=== PATIENT | male | born 1980 | race Caucasian/White ===

== ENCOUNTER 2023-10-08 02:04 | Emergency (ER) | payer BC, MEDICAID, SELFPAY ==
[2023-10-08 02:05] VITALS: BP 158/106; PULSE 128; RESP 18; TEMP 36.6; O2SAT 97; BMI 32.5
--- NOTE | 2023-10-08 02:18 | XRR_ITS ---
PROCEDURE INFORMATION: Exam: XR Chest Exam date and time: 10/08/2023 2:36 AM Age: 43 years old Clinical indication: Chest wall pain; Additional info: Chest pain TECHNIQUE: Imaging protocol: Radiologic exam of the chest. Views: 1 view. COMPARISON: No relevant prior studies available. FINDINGS: Lungs: No consolidation, mass, or pulmonary edema. Pleural spaces: No pneumothorax or pleural effusion. Heart/Mediastinum: Cardiomediastinal silhouette is within normal limits. Bones/joints: No acute osseous abnormality. XR/XR chest 1V portable [id number] IMPRESSION: No acute findings.
--- NOTE | 2023-10-08 02:18 | ECG_ITS ---
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 Measurements Intervals [place] Rate: 124 P: 52 TN: 156 QRS: 27 QRSD: 95 T: 60 QT: 307 QTc: 442 Interpretive Statements SINUS TACHYCARDIA ABNORMAL RHYTHM ECG No previous ECG available for comparison Electronically Signed On 10-08-2023 21:37:25 SHIPPING INSPECTOR by Kvng Johnson M.D. [email or web address]/[id number]
[2023-10-08 02:26] LABS: Basophils # 0.1 10^3/uL (0.0-0.1); Basophils % 0.6 %; Eosinophils # 0.3 10^3/uL (0.0-0.8); Hematocrit 50.8 % (37-53); Lymphocytes % 28.5 %; Mean Corpuscular HGB Conc 32.7 g/dL (30-55); Mean Corpuscular Hemoglobin 28.2 pg (27-33); Mean Corpuscular Volume 86.4 fl (82-101); Mean Platelet Volume 8.2 fL (7.4-10.4); Monocytes # 0.8 10^3/uL (0.2-0.9); Monocytes % 5.7 %; Neutrophils # 8.76 10^3/uL (1.8-7.7); Neutrophils % 62.8 %; Nucleated Red Blood Cells % 0 %; Platelet Count 387 10^3/cmm (157-399); Red Blood Count 5.88 10^6/uL (3.85-5.65); Red Cell Distribution Width 14.1 % (12.1-15.1); White Blood Count 13.94 10^3/uL (3.29-11.43)
[2023-10-08 02:45] LABS: Troponin(5th) Baseline < 6 ng/L (0-15)
[2023-10-08 02:46] LABS: Alanine Aminotransferase 21 U/L (0-41); Albumin Level 4.2 g/dL (3.5-5.2); Alkaline Phosphatase 101 U/L (40-130); Aspartate Amino Transferase 13 U/L (0-40); Blood Urea Nitrogen 14 mg/dL (6-20); Calcium 9.4 mg/dL (8.5-10.5); Carbon Dioxide 21 mmol/L (22-29); Chloride 104 mmol/L (98-107); Globulin 2.6 g/dL (1.3-4.6); Glomerular Filtration Rate 59.7 mL/min (90-130); Glucose 131 mg/dL (65-115); Osmolality Calculated 290 mOsm/kg (285-295); Sodium 139 mmol/L (136-145); Total Bilirubin 0.2 mg/dL (0.15-1.2); Total Protein 6.8 g/dL (6.6-8.7)
[2023-10-08] MEDS: ondansetron 2 mg/ML SDV 2 mL 4 MG IVP (03:17)
[2023-10-08] MEDS: LORazepam 2 mg/mL INJ 10 mL MDV 1 MG IVP (03:18)
--- NOTE | 2023-10-08 03:32 | ED_ITS ---
HPI - Chest Pain 2 General: Chief Complaint: Chest Pain Stated Complaint: chest pain Time Seen by Provider: 10/08/23 03:06 History of Present Illness: Patient presents to the ER in custody by police. Patient is been saying he has been having chest pain off and on for several weeks. Patient does not have any cardiac history/coronary artery disease/stents/history of MIs. Patient also says he is recently by his . Patient also says he has been on anxiety medicine in the past and is very anxious at this moment. Patient's heart rate is 120 beats minute blood pressure 158/106. Patient does not take anything for anxiety. Patient states it is more of a chest pressure does not radiate. Patient denies any shortness of breath nausea vomiting. Patient is mildly diaphoretic and appears very anxious. Review of Systems 2 General: Reports: 10 or more systems reviewed and unremarkable except in HPI and below Physical Exam 2 Const: COMMON NORMALS: no acute distress, average body habitus, patient oriented x3, no limitations, healthy appearing, alert and well nourished HENMT: COMMON NORMALS: normocephalic, atraumatic, hearing grossly normal bilaterally, external ears normal, EAC's normal, Normal external nose present, moist oral mucous membranes and oropharynx normal HEAD & SCALP: normocephalic and atraumatic NOSE: Normal external nose present EXTERNAL EAR: Yes external ears normal EXTERNAL AUDITORY CANAL: EAC's normal Neck/C-Spine: COMMON NORMALS: no JVD Chest: COMMONS NORMALS: normal inspection of the chest; negative for normal palpation of entire chest wall (Tenderness with palpation of the left anterior chest wall.) Resp: COMMON NORMALS: normal respiratory effort, No retractions, No use of accessory muscles and clear to auscultation bilaterally AUSCULTATION: clear to auscultation bilaterally Cardio: COMMON NORMALS: no JVD, regular rhythm, S1 normal heart sound present, S2 normal heart sound present, No gallops present (Cardio), No murmurs present (Cardio) and No rub (Cardio); negative for regular rate (Tachycardic) RATE: abnormal rate (Tachycardic) RHYTHM: regular rhythm HEART SOUNDS: S1 normal heart sound present and S2 normal heart sound present GI: COMMON NORMALS: Normal to inspection, nondistended, normoactive bowel sounds present, Soft to palpation, non-tender, No hepatosplenomegaly present and no masses PALPATION: Yes Soft to palpation and Yes No hepatosplenomegaly present Neuro: COMMON NORMALS: patient oriented x3 SENSORIUM/ORIENTATION: Yes alert Course 2 Vital Signs: Vital signs: Vital Signs Temperature 97.9 F 10/08/23 04:23 Pulse Rate 107 H 10/08/23 04:23 Respiratory Rate 16 10/08/23 04:23 Blood Pressure 136/91 10/08/23 04:23 Pulse Oximetry 95 10/08/23 04:23 Oxygen Delivery Me thod Room Air 10/08/23 02:05 MDM - Chest Pain Medical Decision Making Will perform a chest pain cardiac workup with anticipation medical clearance and discharge back to police custody. Patient be given Ativan 1 mg IV for his anxiety. During his cardiac workup patient began to make suicidal statements. The deputies said they can do suicide watch in the [place]. Patient will be cleared medically and discharged to their custody. Differential Diagnosis Unlikely acute massive pulmonary embolism, acute respiratory failure, acute myocardial infarction, cardiac arrest or sudden cardiac Medical Records I reviewed the patient's medical records. Lab Data I reviewed the patient's lab results. 10/08/23 02:22 10/08/23 02:22 Radiology Impressions Chest X-Ray 10/08/23 02:18 IMPRESSION: No acute findings. Laboratory Results WBC 13.94 10^3/uL (3.29-11.43) H 10/08/23 02:22 RBC 5.88 10^6/uL (3.85-5.65) H 10/08/23 02:22 Hgb 16.60 g/dL (11.27-16.99) 10/08/23 02:22 Hct 50.8 % (37-53) 10/08/23 02:22 MCV 86.4 fl (82-101) 10/08/23 02:22 MCH 28.2 pg (27-33) 10/08/23 02:22 MCHC 32.7 g/dL (30-55) 10/08/23 02:22 RDW 14.1 % (12.1-15.1) 10/08/23 02:22 Plt Count 387 10^3/cmm (157-399) 10/08/23 02:22 MPV 8.2 fL (7.4-10.4) 10/08/23 02:22 Neut % (Auto) 62.8 % 10/08/23 02:22 Lymph % (Auto) 28.5 % 10/08/23 02:22 [place] % (Auto) 5.7 % 10/08/23 02:22 Eos % (Auto) 2.0 % 10/08/23 02:22 Baso % (Auto) 0.6 % 10/08/23 02:22 Neut # (Auto) 8.76 10^3/uL (1.8-7.7) H 10/08/23 02:22 Lymph # (Auto) 4.0 10^3/uL (0.8-4.8) 10/08/23 02:22 [place] # (Auto) 0.8 10^3/uL (0.2-0.9) 10/08/23 02:22 Eos # (Auto) 0.3 10^3/uL (0.0-0.8) 10/08/23 02:22 Baso # (Auto) 0.1 10^3/uL (0.0-0.1) 10/08/23 02:22 Nucleated RBC % (auto) 0 % 10/08/23 02:22 Nucleated RBCs # 0.0 /100WBC 10/08/23 02:22 Sodium 139 mmol/L (136-145) 10/08/23 02:22 Potassium 4.0 mmol/L (3.5-5.1) 10/08/23 02:22 Chloride 104 mmol/L (98-107) 10/08/23 02:22 Carbon Dioxide 21 mmol/L (22-29) L 10/08/23 02:22 Anion Gap 18.0 (5-19) 10/08/23 02:22 BUN 14 mg/dL (6-20) 10/08/23 02:22 Creatinine 1.3 mg/dL (0.7-1.2) H 10/08/23 02:22 GFR Calculation 59.7 mL/min (90-130) L 10/08/23 02:22 Glucose 131 mg/dL (65-115) H 10/08/23 02:22 Calculated Osmolality 290 mOsm/kg (285-295) 10/08/23 02:22 Calcium 9.4 mg/dL (8.5-10.5) 10/08/23 02:22 Total Bilirubin 0.2 mg/dL (0.15-1.2) 10/08/23 02:22 AST 13 U/L (0-40) 10/08/23 02:22 ALT 21 U/L (0-41) 10/08/23 02:22 Alkaline Phosphatase 101 U/L (40-130) 10/08/23 02:22 Troponin T Baseline < 6 ng/L (0-15) 10/08/23 02:22 Troponin T 120 Minute 6.51 ng/L (0-15) 10/08/23 04:07 Delta Troponin T 0.59344 ABS# (0-10) 10/08/23 04:07 Total Protein 6.8 g/dL (6.6-8.7) 10/08/23 02:22 Albumin 4.2 g/dL (3.5-5.2) 10/08/23 02:22 Globulin 2.6 g/dL (1.3-4.6) 10/08/23 02:22 XR interpretation done by ED provider, pending radiology final review EKG Data EKG 1: I personally reviewed and interpreted this EKG as follows: EKG interpretation date: 10/08/23 EKG interpretation time: 02:13 Prior EKG tracings: not available for review Interpretation: EKG showed ventricular rate 124 bpm, OR interval 156, QRS duration 95, QTc 381, sinus tachycardia Discharge Plan Discharge Patient Disposition: Home Clinical Impression: Atypical chest pain, Suicidal ideation, Anxiety Condition: Stable Prescriptions: No Action celecoxib 200 mg capsule 200 mg PO BID PRN (Reason: pain) 30 Days Qty: 60 0RF Discharge Orders: Discharge ED (Routine); Ordered 10/08/23 Ordered By: Zachery Garcia Patient Instructions: Chest Pain - Noncardiac, Anxiety (ED), Suicidal Ideation Activity Restrictions/Additional Instructions: Your workup in ER did not show any acute causes of cardiac chest pain. Is felt to be noncardiac in nature. You are fit for confinement. He will be discharged to police custody and placed in suicidal watch secondary to further comments he made in the ER. Coding Level of Care Code ED Assemblies And Installations Inspector for Feli Dawson
[2023-10-08 03:36] VITALS: BP 136/91; PULSE 107; RESP 16; O2SAT 95
[2023-10-08 04:23] VITALS: BP 136/91; PULSE 107; RESP 16; TEMP 36.6; O2SAT 95
[2023-10-08 04:32] LABS: Troponin 5 2HR 6.51 ng/L (0-15); Troponin 5 2HR Delta 0.51001 ABS# (0-10)
== END 2023-10-08 04:28 | disposition home or self-care (01) ==
PROVIDERS: Emergency Provider Emergency Medicine
DX: R07.89 Other chest pain (principal); R45.851 Suicidal ideations; F41.9 Anxiety disorder, unspecified
CPT/HCPCS: 36415; 71045; 80053; 84484; 85025; 93005; 96374; 96375; 99285; J2060; J2405

== ENCOUNTER 2023-10-09 16:01 | Inpatient (IN) | payer BC, SELFPAY ==
[2023-10-09 16:03] VITALS: BP 142/91; PULSE 95; TEMP 36.8; O2SAT 96; BMI 32.5
--- NOTE | 2023-10-09 16:03 | ECG_ITS ---
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 Measurements Intervals [place] Rate: 80 P: 39 [place]: 149 QRS: 25 QRSD: 103 T: 65 QT: 364 QTc: 421 Interpretive Statements SINUS RHYTHM Compared to ECG 10/08/2023 02:13:30 Sinus tachycardia no longer present Electronically Signed On 10-10-2023 6:50:14 METHODS ENGINEER by Dagoberto Mcintosh M.D. [id number]
--- NOTE | 2023-10-09 16:15 | W.ED.PSYCHS ---
HPI - Psych General: Chief Complaint: Psychiatric Symptoms Stated Complaint: 96 hr hold Time Seen by Provider: 10/09/23 16:02 Source: patient Mode of arrival: ambulatory Limitations: no limitations History of Present Illness: 43-year-old male who was arrested today patient's release now brought in by police as he had stated while he was in detention he was suicidal. He states that he just felt very stressed and anxious while in detention he states that since being out he is no longer suicidal or homicidal would like to go home. Associated symptoms: Reports depression Review of Systems Const: Denies: fever(s), chills, body aches or change in appetite ENMT: Denies: throat pain or dental pain Card: Denies: chest pain Resp: Denies: dyspnea GI: Denies: abdominal pain, nausea, vomiting or diarrhea Musc: Denies: neck pain or back pain Skin/Breast: Denies: rash Neuro: Denies: headache(s) Psych: Reports: depression Physical Exam Const: COMMON NORMALS: no acute distress, patient oriented x3 and healthy appearing HENMT: COMMON NORMALS: normocephalic and atraumatic HEAD & SCALP: normocephalic and atraumatic Neck/C-Spine: COMMON NORMALS: full ROM and supple Chest: COMMONS NORMALS: normal inspection of the chest Resp: COMMON NORMALS: normal respiratory effort Cardio: COMMON NORMALS: regular rate, regular rhythm and No murmurs present (Cardio) RATE: regular rate RHYTHM: regular rhythm Extremity: COMMON NORMALS: normal to inspection and full ROM Neuro: COMMON NORMALS: patient oriented x3, moves all extremities and no focal motor deficits Psych: COMMON NORMALS: mental status grossly normal, Normal thought process present and cooperative THOUGHT PROCESS: Normal thought process present Skin: COMMON NORMALS: no rashes or lesions noted and no wounds GENERAL SKIN EXAM: no rashes or lesions noted Course Vital Signs: Vital signs: Vital Signs Temperature 98.2 F 10/09/23 16:03 Pulse Rate 95 10/09/23 16:03 Blood Pressure 142/91 10/09/23 16:03 Pulse Oximetry 96 10/09/23 16:03 Oxygen Delivery Me thod Room Air 10/09/23 16:03 MDM - Psych Medical Decision Making Patient presents for suicidal ideation he is brought in by police on a bicycle or hold his mother actually called parents stated that he had not made threats to she knows of by text to her. He denies being suicidal currently but with these threats will continue 96-hour hold I spoke to psychiatrist and admit at this time. Medical Records I reviewed the patient's medical records. Lab Data I reviewed the patient's lab results. 10/09/23 16:12 10/09/23 16:12 Laboratory Results WBC 12.42 10^3/uL (3.29-11.43) H 10/09/23 16:12 RBC 6.18 10^6/uL (3.85-5.65) H 10/09/23 16:12 Hgb 17.10 g/dL (11.27-16.99) H 10/09/23 16:12 Hct 53.2 % (37-53) H 10/09/23 16:12 MCV 86.1 fl (82-101) 10/09/23 16:12 MCH 27.7 pg (27-33) 10/09/23 16:12 MCHC 32.1 g/dL (30-55) 10/09/23 16:12 RDW 14.2 % (12.1-15.1) 10/09/23 16:12 Plt Count 368 10^3/cmm (157-399) 10/09/23 16:12 MPV 8.1 fL (7.4-10.4) 10/09/23 16:12 Neut % (Auto) 56.5 % 10/09/23 16:12 Lymph % (Auto) 33.7 % 10/09/23 16:12 [place] % (Auto) 6.7 % 10/09/23 16:12 Eos % (Auto) 2.3 % 10/09/23 16:12 Baso % (Auto) 0.6 % 10/09/23 16:12 Neut # (Auto) 7.03 10^3/uL (1.8-7.7) 10/09/23 16:12 Lymph # (Auto) 4.2 10^3/uL (0.8-4.8) 10/09/23 16:12 [place] # (Auto) 0.8 10^3/uL (0.2-0.9) 10/09/23 16:12 Eos # (Auto) 0.3 10^3/uL (0.0-0.8) 10/09/23 16:12 Baso # (Auto) 0.1 10^3/uL (0.0-0.1) 10/09/23 16:12 Nucleated RBC % (auto) 0 % 10/09/23 16:12 Nucleated RBCs # 0.0 /100WBC 10/09/23 16:12 Sodium 138 mmol/L (136-145) 10/09/23 16:12 Potassium 4.4 mmol/L (3.5-5.1) 10/09/23 16:12 Chloride 103 mmol/L (98-107) 10/09/23 16:12 Carbon Dioxide 24 mmol/L (22-29) 10/09/23 16:12 Anion Gap 15.4 (5-19) 10/09/23 16:12 BUN 14 mg/dL (6-20) 10/09/23 16:12 Creatinine 1.1 mg/dL (0.7-1.2) 10/09/23 16:12 GFR Calculation 72.4 mL/min (90-130) L 10/09/23 16:12 Glucose 109 mg/dL (65-115) 10/09/23 16:12 Calculated Osmolality 287 mOsm/kg (285-295) 10/09/23 16:12 Calcium 9.9 mg/dL (8.5-10.5) 10/09/23 16:12 Total Bilirubin 0.2 mg/dL (0.15-1.2) 10/09/23 16:12 AST 17 U/L (0-40) 10/09/23 16:12 ALT 24 U/L (0-41) 10/09/23 16:12 Alkaline Phosphatase 114 U/L (40-130) 10/09/23 16:12 Total Protein 7.3 g/dL (6.6-8.7) 10/09/23 16:12 Albumin 4.3 g/dL (3.5-5.2) 10/09/23 16:12 Globulin 3.0 g/dL (1.3-4.6) 10/09/23 16:12 Salicylates < 0.3 mg/dL (3-10) L 10/09/23 16:12 Acetaminophen < 5.0 ug/mL (10-30) L 10/09/23 16:12 Ethyl Alcohol < 10 mg/dL (0-10) 10/09/23 16:12 No radiology studies performed this visit Discharge Plan Discharge Patient Disposition: Admitted As Inpatient Admit Provider: Jered Clark Clinical Impression: Suicidal ideation Condition: Stable Coding Level of Care Code ED Chucking Machine Set Up Operator Tool for Feli Dawson
[2023-10-09 16:18] LABS: Basophils # 0.1 10^3/uL (0.0-0.1); Basophils % 0.6 %; Eosinophils # 0.3 10^3/uL (0.0-0.8); Eosinophils % 2.3 %; Hematocrit 53.2 % (37-53); Lymphocytes # 4.2 10^3/uL (0.8-4.8); Lymphocytes % 33.7 %; Mean Corpuscular HGB Conc 32.1 g/dL (30-55); Mean Corpuscular Hemoglobin 27.7 pg (27-33); Mean Corpuscular Volume 86.1 fl (82-101); Mean Platelet Volume 8.1 fL (7.4-10.4); Monocytes # 0.8 10^3/uL (0.2-0.9); Monocytes % 6.7 %; Neutrophils # 7.03 10^3/uL (1.8-7.7); Neutrophils % 56.5 %; Nucleated Red Blood Cells % 0 %; Platelet Count 368 10^3/cmm (157-399); Red Blood Count 6.18 10^6/uL (3.85-5.65); Red Cell Distribution Width 14.2 % (12.1-15.1); White Blood Count 12.42 10^3/uL (3.29-11.43)
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
[2023-10-09 16:39] LABS: Acetaminophen < 5.0 ug/mL (10-30); Alanine Aminotransferase 24 U/L (0-41); Albumin Level 4.3 g/dL (3.5-5.2); Alcohol Level < 10 mg/dL (0-10); Alkaline Phosphatase 114 U/L (40-130); Anion Gap 15.4 (5-19); Aspartate Amino Transferase 17 U/L (0-40); Blood Urea Nitrogen 14 mg/dL (6-20); Calcium 9.9 mg/dL (8.5-10.5); Carbon Dioxide 24 mmol/L (22-29); Chloride 103 mmol/L (98-107); Glomerular Filtration Rate 72.4 mL/min (90-130); Glucose 109 mg/dL (65-115); Osmolality Calculated 287 mOsm/kg (285-295); Potassium 4.4 mmol/L (3.5-5.1); Salicylate < 0.3 mg/dL (3-10); Sodium 138 mmol/L (136-145); Total Bilirubin 0.2 mg/dL (0.15-1.2); Total Protein 7.3 g/dL (6.6-8.7)
[2023-10-09 18:11] VITALS: BP 134/83; PULSE 106; RESP 16; TEMP 36.6; O2SAT 96
--- NOTE | 2023-10-09 19:32 | PC.NURSE ---
PT WAS BROUGHT IN TO ED FOR 96 HOUR HOLD AFTER STATING TO PD WHILE IN CUSTODY THAT HE WAS SUICIDAL. PT ALSO STATED SIMILAR STATEMENTS TO HIS MOTHER. PT STATES TO STAFF THAT HE IS NOT SUICIDAL AND THAT BEING CONFINED IS WHAT MAKES ME SUICIDAL. PT STATES THAT HIM BEING ADMITTED IS BULLSHIT AND THAT HE IS GOING TO [facility] THIS FUCKING PLACE WHEN HE GETS OUT OF HERE.
[2023-10-09 20:15] VITALS: BP 107/57; PULSE 90; RESP 17; TEMP 37.1; O2SAT 95
--- NOTE | 2023-10-09 20:27 | PC.NURSE ---
IN BED RESTING, WITHDRAWN TO ROOM. PT IS EVASIVE WITH ASSESSMENT QUESTIONS AND STATES THIS IS A WASTE OF MY TIME SO HURRY UP. DENIES SI/HI AND AVH AT THIS TIME. RATES ANXIETY 2/10 AND DEPRESSION 0/10. DECLINES ANTI ANXIETY MEDICATIONS AND SLEEP MEDS AT THIS TIME. DENIES PAIN.PT IS NOTED TO HAVE NO EYE CONTACT WITH STAFF, AND STATES HE WISHES TO GO HOME. PT EDUCATED THAT HE IS ON A [address] IS THE ONLY ONE THAT CAN DISCHARGE HIM. PT CONTINUED TO BE UPSET AND NEGATIVE TOWARDS STAFF. ALL QUESTIONS ANSWERED AND SUPPORT WAS VOICED.
[2023-10-10 06:00] VITALS: BP 105/75; PULSE 68; RESP 18; TEMP 36.8; O2SAT 95
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
--- NOTE | 2023-10-10 09:01 | PC.NURSE ---
During morning assessment, patient was withdrawn. Patient answered all questions with simple answers. Patient denied SI, HI, AVH, depression, and anxiety. Patient informed of staff needing UA. Patient voiced understanding.
[2023-10-10 14:00] VITALS: BP 146/82; PULSE 86; RESP 18; TEMP 36.8; O2SAT 99
--- NOTE | 2023-10-10 20:19 | PC.NURSE ---
IN BED AROUSES TO VOICE. PT STATES SOMEONE IS BRINGING MY PHONE UP SO DR. LU CAN LOOK AT MY EMAIL THAT I'M WORKING IN [place] SO I CAN DISCHARGE. PTS FRIEND CAME UP WITH PHONE AND THE EMAIL APPEARS TO BE AN INTERVIEW CONFIRMATION WITH THE RATE OF PAY IF HIRED. MOTHER CALLED UNIT TO GIVE RN INFORMATION. MOTHER WAS INFORMED WE CAN LET HER KNOW HE IS HERE BUT WE CAN NOT DISCUSS PT INFORMATION. PTS MOM SAID THAT IS FINE I'M JUST CALLING TO LET WHOEVER NEEDS TO KNOW MY SON IS TRYING TO GET OUT OF THERE AND MAKE HIS DAD CALL UP THERE TO SAY HE HAS A JOB IN [place] AND HE DOES NOT. HE IS JUST TRYING TO GET OUT. RN AGAIN LET MOTHER KNOW HE IS HERE BUT THAT IS THE ONLY INFORMATION I CAN GIVE HER. PT DOES DENY PAIN. DENIES SI/HI AND AVH AT THIS TIME. RATES ANXIETY 2/10 DUE TO WAITING TO GET OUT OF HERE, THATS ALL I WANT TO DO. RATES DEPRESSION 0/10. PT WAS INFORMED HE NEEDS TO COMPLETE HIS URINALYSIS PRIOR TO LEAVING. PT DID URINATE AND SPECIMEN WAS SENT. ALL QUESTIONS ANSWERED AND SUPPORT WAS VOICED.
[2023-10-10 20:44] VITALS: BP 134/65; PULSE 75; RESP 18; TEMP 36.8; O2SAT 95
[2023-10-10 20:55] LABS: Amphetamines Screen Urine Positive (Negative); Barbiturates Screen Urine Negative (Negative); Benzodiazepines Screen Urine Negative (Negative); Cocaine Screen Urine Negative (Negative); Opiate Screen Urine Negative (Negative); PCP Screen Urine Negative (Negative); THC Screen Urine Negative (Negative)
[2023-10-11 06:00] VITALS: BP 147/86; PULSE 77; RESP 16; TEMP 36.9; O2SAT 98
[2023-10-11 14:00] VITALS: BP 133/74; PULSE 74; RESP 17; TEMP 36.4; O2SAT 96
--- NOTE | 2023-10-11 14:01 | P.NPUPN_ITS ---
Subjective NPU 2 Subjective: Patient presented today continuing to report that he is fine. He continued to report the same reasons that he will be safe as before including not having any thoughts to hurt or kill himself and that he would never do that to his children. He continues to push for discharge with reports of still having a plan to get out of town to do his job even though he still has no proof that he has been accepted for new employment in [place]. He continued to deny any ill intent towards his ex and no plans to return to that home where he used to live in cause any more problems or get arrested. He reports that being arrested was the reason why he endorsed suicidal ideation. Mental Status Exam 2 MSE Comments: This is an obese white male in hospital scrubs with adequate grooming and eye contact. No abnormal movements except for mild psychomotor agitation. Cooperative with exam in mild distress. Speech was slightly increased rate and volume. Mood described as anxious but fine, affect congruent. Thought process organized. Thought content: Patient denied suicidal or homicidal ideation, there were no delusions reported or noted, he denied auditory or visual hallucinations. Attention and concentration were intact and memory was appeared reliable but none were formally tested. He is alert and oriented x 3. Insight and judgment are fair, impulse control is limited Vitals/I&O/Wt Last Vital Signs Temp 98.4 F 10/11/23 06:00 Pulse 77 10/11/23 06:00 Resp 16 10/11/23 06:00 BP 147/86 10/11/23 06:00 Pulse Ox 98 10/11/23 06:00 O2 Del Method Room Air 10/11/23 06:00 Weight last 48 hrs Weight 108.862 kg Data NPU 10/09/23 16:12 10/09/23 16:12 A&P Assessment and plan (1) Suicidal ideation: (2) Anxiety: (3) Adjustment disorder with mixed disturbance of emotions and conduct: Plan This is a 43-year-old male who presented to the emergency department with police with reports of suicidal thoughts when he was being booked at the formerly [facility] custodial who began backtracking on those claims when he was released and brought to the emergency department on 96-hour hold. 1. Continue off of medication 2. encourage individual group and milieu therapy. 3. continue 15-minute med checks for safety. 4. Evaluate the safety issues related to the 96-hour hold for consideration of discharge. 5. Will consider discharge today with verification of work agreement out of town. Either way we will likely allow to leave tomorrow if continues with current presentation and affect. Involuntary Hold Information 2 96 Hour Hold: 96 Hour Involuntary Admission: Yes 96 Hour Hold Ending Date: 10/15/23 96 Hour Hold Ending Time: 17:13 Attestations NPU 2 Medical Necessity Statement*: Inpatient hospitalization is medically necessary and the clinically appropriate intervention at this time. We will monitor medications and make changes as indicated. Likely length of stay 1-3 days. Coding Level of Care Code Acute Code for Chg Fwd Diagnoses Suicidal ideation R45.851 Anxiety F41.9 Adjustment disorder with mixed disturbance of emotions and conduct F43.25
[2023-10-11] MEDS: trazodone 50 mg Tablet PO (19:48)
[2023-10-11] MEDS: hyDROXYzine 25 mg Capsule 50 MG PO (19:48)
[2023-10-11 22:00] VITALS: BP 184/118; PULSE 100; RESP 18; TEMP 36.7; O2SAT 97
[2023-10-12] MEDS: hyDROXYzine 25 mg Capsule 50 MG PO (02:03)
[2023-10-12 06:00] VITALS: BP 121/74; PULSE 76; RESP 15; TEMP 36.9; O2SAT 95; BMI 32.5
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
[2023-10-12 08:54] VITALS: BP 121/74; PULSE 76; RESP 15; TEMP 36.9; O2SAT 95
== END 2023-10-12 10:31 | disposition home or self-care (01) | DRG 882 ==
LOC: ER 16:24 → NP 17:28
PROVIDERS: Admitting Provider Psychiatry & Neurology Psychiatry; Emergency Provider Emergency Medicine; Visit Provider Psychiatry & Neurology Psychiatry
DX: F43.25 Adjustment disorder with mixed disturbance of emotions and conduct (principal); R45.851 Suicidal ideations; F41.9 Anxiety disorder, unspecified; Z72.0 Tobacco use
CPT/HCPCS: 36415; 80053; 80306; 80307; 85025; 93005; 99285